=== PATIENT | male | born 1950 | race Hispanic/Latino ===

== ENCOUNTER 2017-12-31 06:46 | Inpatient (IN) | payer OTHER ==
[2017-12-26 09:45] VITALS: BP 126/59
[2017-12-26 09:56] LABS: BASOPHILS % (AUTO) 0.4 % (0.0-5.0); EOSINOPHILS % (AUTO) 0.4 % (0.0-8.0); HEMATOCRIT 38.7 % (42-54); LYMPHOCYTES % (AUTO) 29.6 % (21.0-51.0); MEAN CORPUSCULAR HEMOGLOBIN 33.4 pg (27.0-33.0); MEAN CORPUSCULAR VOLUME 95.5 fL (79-99); MONOCYTES % (AUTO) 8.5 % (3.0-13.0); NEUTROPHILS % (AUTO) 61.1 % (40.0-77.0); NUCLEATED RED BLOOD CELLS 0.1 % (0.0-0.19); PLATELET COUNT (AUTO) 128 K/uL (130-400); RED BLOOD CELL COUNT(AUTO) 4.05 MIL/uL (4.50-6.20); RED CELL DISTRIBUTION WIDTH 12.9 % (11.0-15.5); WHITE BLOOD COUNT (AUTO) 3.2 K/uL (4.8-10.8)
[2017-12-26 10:02] LABS: CREATININE 0.9 mg/dL (0.5-1.5); POTASSIUM 4.1 mmol/L (3.5-5.1)
[~2017-12-31] VITALS: Ht 177.8 cm; Wt 74.5 kg
[2017-12-31] VITALS (24 sets, daily range): BP systolic 118–150; BP diastolic 52–70
[2017-12-31] MEDS ORDERED: LACTATED RINGERS 1000ML 1,000 ML IV ONE (07:38)
[2017-12-31] MEDS ORDERED: WATER FOR INJECTION,STERILE 20 ML VIAL IJ ONE (08:00)
[2017-12-31] MEDS: CEFAZOLIN SODIUM 1 GM VIAL IVP ONE ×2 (08:16→08:30)
[2017-12-31] MEDS ORDERED: DEXAMETHASONE SOD PHOSPHATE 10MG/ML 1ML VIAL ONE (08:17)
[2017-12-31] MEDS ORDERED: GLYCOPYRROLATE 0.2 MG/ML 5 ML VIAL ONE (08:17)
[2017-12-31] MEDS ORDERED: MIDAZOLAM HCL 1 MG/ML 2ML VIAL ONE (08:17)
[2017-12-31] MEDS ORDERED: PROPOFOL 10 MG/ML 20ML VIAL IV ONE (08:17)
[2017-12-31] MEDS ORDERED: LIDOCAINE PF 2% 5ML ABBOJECT ONE (08:17)
[2017-12-31] MEDS ORDERED: FENTANYL CITRATE PF 50 MCG/1 ML 2ML VIAL ONE (08:18)
[2017-12-31] MEDS ORDERED: BUPIVACAINE/PF 0.25% 30ML VIAL IJ ONE ×2 (08:43→09:55)
[2017-12-31] MEDS ORDERED: EPHEDRINE SULFATE 50 MG/ML AMPULE ONE (08:45)
[2017-12-31] MEDS ORDERED: MEPERIDINE-PF 25 MG/ML SYG ONE (10:44)
[2017-12-31] MEDS ORDERED: DEXTROSE 5 % AND 0.9 % NACL 1,000 ML IV ONE (11:57)
[2017-12-31] MEDS ORDERED: MEPERIDINE-PF 25 MG/ML SYG IV PRN (12:15)
[2017-12-31] MEDS ORDERED: ONDANSETRON HCL MDV 20ML 2 MG/ML VIAL IVP PRN (12:15)
[2017-12-31] MEDS: ACETAMINOPHEN-CODEINE 300/30MG TAB PO PRN ×2 (13:38→19:47)
[2017-12-31] MEDS: CEFAZOLIN SODIUM 1 GM VIAL IVP SCH ×2 (13:38→22:28)
[2017-12-31] MEDS: DEXTROSE 5 % AND 0.9 % NACL 1,000 ML IV SCH ×2 (13:44→22:28)
[2018-01-01] VITALS: BP 134/65
[2018-01-01 04:00] VITALS: BP 126/67
[2018-01-01 07:50] VITALS: BP 130/70
[2018-01-01] MEDS: ACETAMINOPHEN-CODEINE 300/30MG TAB PO PRN (08:01)
[2018-01-01] MEDS: DEXTROSE 5 % AND 0.9 % NACL 1,000 ML IV SCH (08:04)
== END 2018-01-01 10:08 | disposition home or self-care (01) | DRG 352 ==
LOC: DAH 06:46 → OBSVTOIN 06:47 → DAHIP 06:47 → 4BH 12:31
PROVIDERS: ADMIT Internal Medicine Nephrology; ATTEND Internal Medicine Nephrology
PROC: 0YUA0JZ Supplement Bilateral Inguinal Region with Synthetic Substitute, Open Approach (ICD-10-PCS; principal; 2017-12-31 08:20)
DX: K40.20 Bilateral inguinal hernia, without obstruction or gangrene, not specified as recurrent (principal)
CPT/HCPCS: 36415; 80048; 85025; 88304; 96374; 96375; 96376; A4218; G0378; J0690; J1100; J2001; J2175; J2250; J2704; J3010; J3490; J7030; J7042; J7120

== ENCOUNTER → 2018-11-20 | Outpatient (CLI) | payer OTHER | END | disposition home or self-care (01) | LOC: RAH 09:22 | PROVIDERS: ATTEND Family Medicine | DX: I51.7 Cardiomegaly (principal) | CPT/HCPCS: 93306 ==

== ENCOUNTER → 2018-12-20 | Outpatient (CLI) | payer OTHER | END | disposition home or self-care (01) | LOC: OIH 14:32 | PROVIDERS: ATTEND Family Medicine | DX: M47.817 Spondylosis without myelopathy or radiculopathy, lumbosacral region (principal); M47.812 Spondylosis without myelopathy or radiculopathy, cervical region; R05 Cough | CPT/HCPCS: 71046; 72040; 72100 ==